=== PATIENT | female | born 1955 | race Two or more races ===

== ENCOUNTER 2017-12-13 09:52 | Outpatient (CLI) | payer OTHER ==
[~2017-12-13 09:52] MED LIST: ATENOLOL25 MG
== END 2017-12-13 12:16 | disposition home or self-care (01) ==
LOC: SONOGRAMA 09:52
DX: E78.2 Mixed hyperlipidemia (principal); I10 Essential (primary) hypertension

== ENCOUNTER → 2018-12-26 | Emergency (ER) | payer OTHER ==
[~2018-12-26] VITALS: Ht 160 cm; Wt 56.7 kg
== END | disposition left against medical advice (07) ==
LOC: ER 22:58
DX: Z53.20 Procedure and treatment not carried out because of patient's decision for unspecified reasons (principal)

== ENCOUNTER 2019-03-20 18:18 | Emergency (ER) | payer OTHER ==
[~2019-03-20] VITALS: Ht 160 cm; Wt 57.6 kg
[2019-03-20] MEDS ORDERED: SIMVASTATIN20 MG PO (18:36)
[2019-03-20] MEDS ORDERED: MURO-12815 M1 OP (18:36)
== END 2019-03-20 19:52 | disposition home or self-care (01) ==
LOC: ER 18:18
DX: G44.40 Drug-induced headache, not elsewhere classified, not intractable (principal); T39.315A Adverse effect of propionic acid derivatives, initial encounter

== ENCOUNTER 2020-06-28 08:04 | Outpatient (CLI) | payer OTHER ==
[~2020-06-28 08:04] MED LIST changes: +MURO-12815 M1 OP; +SIMVASTATIN20 MG PO
== END 2020-06-28 08:14 | disposition home or self-care (01) ==
LOC: SONOGRAMA 08:04
PROVIDERS: ATTEND Internal Medicine Gastroenterology
DX: R10.84 Generalized abdominal pain (principal)

== ENCOUNTER 2021-03-28 12:29 | Emergency (ER) | payer OTHER ==
[~2021-03-28] VITALS: Ht 160 cm; Wt 59.0 kg
[2021-03-28] MEDS ORDERED: PEPCID AC20 MG (12:42)
[2021-03-28] MEDS ORDERED: CALTRATE+D3 PL1 EACH (12:43)
== END 2021-03-28 13:48 | disposition home or self-care (01) ==
LOC: ER 12:29
DX: L23.2 Allergic contact dermatitis due to cosmetics (principal)